=== PATIENT | male | born 2000 | race Caucasian/White ===

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

== ENCOUNTER 2020-04-23 06:39 | Day surgery (SDC) | payer BC, MEDICAID ==
[2020-04-23] MEDS ORDERED: Lidocaine 1% with EPINEPHrine 1:100,000 50 ML MDV ONE (06:45)
[2020-04-23] MEDS ORDERED: Bupivacaine 0.5% 50 ML MDV ONE (06:45)
[2020-04-23] MEDS ORDERED: Propofol 200 MG/20 ML SDV ONE ×2 (07:28→07:46)
[2020-04-23] MEDS ORDERED: Midazolam 1 MG/ML 2 ML SDV ONE (07:28)
[2020-04-23] MEDS ORDERED: fentaNYL 100 MCG/2 ML SDV ONE (07:28)
[2020-04-23] MEDS ORDERED: Sodium Chloride 0.9% 1,000 ML IV SCH (07:30)
[2020-04-23] MEDS ORDERED: Ketorolac 60 MG/2 ML SDV ONE (07:47)
[2020-04-23] MEDS ORDERED: ceFAZolin 2 GM in Premix Bag 1 BAG IV ONE (08:00)
[2020-04-23] MEDS ORDERED: Ropivacaine 36 ML, dexAMETHasone 8 MG, EPINEPHrine 0.4 MG, Sodium Chloride 0.9% 41.6 ML NERVRT SCH ×4 (08:30)
[2020-04-23] MEDS ORDERED: metroNIDAZOLE/Normal Saline 500 MG in Premix Bag 1 BAG IV ONE (08:30)
[2020-04-23 09:07] VITALS: BP 121/70; PULSE 69
--- NOTE | 2020-04-23 12:59 | OR ---
DATE OF PROCEDURE: 04/23/2020 SURGEON: J Carlos Case MD PROCEDURE: Open umbilical hernia repair, incarcerated. FINDINGS: Incarcerated omentum. RISKS: Risks, benefits, alternatives, and limitations including but not limited to infection, bleeding, and perforation; injury to bowel; chronic pain; chronic wounds; and other risks not listed here were explained to the patient. They wished to proceed. PREOPERATIVE DIAGNOSES: Open umbilical hernia repair due to incarcerated hernia. POSTOPERATIVE DIAGNOSIS: Open umbilical hernia repair due to incarcerated hernia. PROCEDURE IN DETAIL: The patient was placed in supine position. An infraumbilical curvilinear incision was made. This was then carried down with blunt dissection to the area of the hernia sac. The sac was then opened and omentum was found to be incarcerated. This was placed back within the abdomen. The sac was then closed. The defect was approximately 5 mm in size. This was closed with interrupted #1 Vicryl sutures x2. The abdomen was irrigated. The umbilicus was reapproximated. The wound was closed with 3-0 Vicryl and 4-0 Vicryl in interrupted running fashion. Dermabond was applied. The patient tolerated the procedure well. J Carlos Case MD /[id number]
--- NOTE | 2020-04-23 20:34 | OR ---
DATE OF PROCEDURE: 04/23/2020 SURGEON: J Carlos Caes MD PROCEDURES: 1. Bilateral transversus abdominis plane blocks. 2. Bilateral rectus sheath blocks. COMPLICATIONS: None. HEALTHCARE RECRUITER: None. RISKS: Risks, benefits, alternatives, and limitations including but not limited to infection, bleeding, perforation; or injury to bowel and bladder were explained to the patient who wished to proceed. PROCEDURE IN DETAIL: The patient was placed in supine position. The procedure commenced in a left to right pattern. Left transversus plane was then injected first. 20% solution was injected using 13 megahertz ultrasound probe. This was then performed on the right side. The left and right rectus sheath were also injected under direct visualization. A total of 80% solution was used for all 4 locations. The patient tolerated the procedure well. J Carlos Case MD /[id number]
== END 2020-04-23 09:20 | disposition home or self-care (01) ==
LOC: JP.SDS 06:39
PROVIDERS: ATTEND Surgery
DX: K42.0 Umbilical hernia with obstruction, without gangrene (principal); Z87.891 Personal history of nicotine dependence
CPT/HCPCS: 36415; 80053; 85027; J0171; J0690; J1100; J1885; J2250; J2704; J2795; J3010; J3490; J7030

== ENCOUNTER 2021-03-16 00:08 | Emergency (ER) | payer MEDICAID ==
[2021-03-16 00:21] VITALS: BP 131/74; PULSE 87
[2021-03-16] MEDS ORDERED: Lidocaine 1% with EPINEPHrine 1:100,000 50 ML MDV SUBCUT STA (00:23)
[2021-03-16] MEDS ORDERED: Bacitracin Oint 1 GM U/D Packet TOP ONE (00:23)
== END 2021-03-16 01:10 | disposition home or self-care (01) ==
LOC: JP.ED 00:08
DX: S61.412A Laceration without foreign body of left hand, initial encounter (principal); Z72.0 Tobacco use; W26.0XXA Contact with knife, initial encounter
CPT/HCPCS: 12001; 99282-25

== ENCOUNTER 2021-03-18 16:22 | Emergency (ER) | payer MEDICAID ==
[2021-03-18 17:59] VITALS: BP 129/74; PULSE 103
[2021-03-18] MEDS ORDERED: Lidocaine 1% with EPINEPHrine 1:100,000 50 ML MDV INFILT STA (18:10)
[2021-03-18] MEDS ORDERED: Bacitracin Oint 1 GM U/D Packet TOP ONE (18:11)
== END 2021-03-18 20:00 | disposition home or self-care (01) ==
LOC: JP.ED 16:22
DX: S01.01XA Laceration without foreign body of scalp, initial encounter (principal); S01.411A Laceration without foreign body of right cheek and temporomandibular area, initial encounter; S00.83XA Contusion of other part of head, initial encounter; Z72.0 Tobacco use; W22.8XXA Striking against or struck by other objects, initial encounter; Y92.009 Unspecified place in unspecified non-institutional (private) residence as the place of occurrence of the external cause
CPT/HCPCS: 12011; 70450; 70486; 99283; 99283-25